=== PATIENT | female | born 1970 | race Caucasian/White ===

== ENCOUNTER 2017-02-11 14:07 | Outpatient (CLI) ==
[2015-09-22 14:03] VITALS: BMI 19.3
--- NOTE | 2017-02-11 14:59 | DI ---
EXAM: Three views of the left wrist. History: Left wrist pain. Findings: No acute fracture or dislocation. No abnormal calcifications or radiopaque foreign izzy s. Joint spaces are preserved. Impression: No acute osseous abnormality.
== END 2017-02-11 14:08 | disposition home or self-care (01) ==
LOC: RAD 14:07
PROVIDERS: ATTEND Nurse Practitioner Family
DX: M65.4 Radial styloid tenosynovitis [de Quervain] (principal); M25.532 Pain in left wrist

== ENCOUNTER 2017-02-14 12:11 | Outpatient (CLI) ==
[2015-09-22 14:03] VITALS: BMI 19.3
--- NOTE | 2017-02-15 07:14 | MRI ---
EXAM: MRI left wrist without contrast. HISTORY: Pain. Sudden onset severe weakness left wrist. Numbness. No known injury. No left wris t surgery reported.. TECHNIQUE: Using a local extremity coil on a high field strength magnet multiplanar multisequence m agnet resonance imaging was performed of the left wrist without intravenous or intra-articular gadol inium contrast.. COMPARISON: Three-view plain film examination left wrist 02/11/2017. FINDINGS: The alignment of the left wrist shows no dislocation or joint subluxations. No scapholun ate or lunotriquetral joint space widening. No definitive scapholunate or lunotriquetral ligamentou s disruption. Bone marrow signal intensity of the left wrist shows no acute fracture, stress fractu re or bone erosions. Trace radiocarpal joint effusion. Trace left distal radioulnar joint effusion . Central triangular fibrocartilage disc grossly intact on this non-arthrographic examination. The carpal tunnel its contents as well as overlying flexor retinaculum within normal limit in appear ance. The extensor compartments I - intact without tenosynovitis. The visualized muscle bulk sh ows normal signal intensity. No discrete synovial/ganglion cyst identified.. . IMPRESSION: No acute fracture/stress fracture, bone erosions, joint subluxations or tenosynovitis.
== END 2017-02-14 12:12 | disposition home or self-care (01) ==
LOC: RAD 12:11
PROVIDERS: ATTEND Nurse Practitioner Family
DX: M25.532 Pain in left wrist (principal)

== ENCOUNTER 2018-05-28 10:18 | Outpatient (CLI) ==
[2015-09-22 14:03] VITALS: BMI 19.3
== END 2018-05-28 10:19 | disposition home or self-care (01) ==
LOC: LAB 10:18
PROVIDERS: ATTEND Internal Medicine Cardiovascular Disease
DX: R53.83 Other fatigue (principal)
CPT/HCPCS: 36415; 80048; 82306; 82607; 82746; 84443; 85025

== ENCOUNTER 2018-09-04 11:22 | Outpatient (CLI) ==
[2015-09-22 14:03] VITALS: BMI 19.3
--- NOTE | 2018-09-04 15:19 | DI ---
EXAM: Chest two view, frontal and lateral views. HISTORY: Cough. COMPARISON: None available. FINDINGS: The heart size is normal. There is no pulmonary vascular congestion. The lungs are clear . No pleural effusion or pneumothorax is seen. No acute osseous abnormality identified. IMPRESSION: No acute cardiopulmonary process.
== END 2018-09-04 11:23 | disposition home or self-care (01) ==
LOC: RAD 11:22
PROVIDERS: ATTEND Nurse Practitioner Family
DX: R05 Cough (principal); R06.2 Wheezing